=== PATIENT | female | born 1995 | race Caucasian/White ===

== ENCOUNTER → 2021-08-29 15:03 | Outpatient (CLI) | payer OTHER, SELFPAY ==
[2021-08-29 19:09] LABS: ALB/GLOB Ratio 0.9 RATIO (0.9-2.4); AST(SGOT) 18 U/L (15-37); Alanine Aminotransfer ALT/SGPT 37 U/L (13-56); Albumin, Serum 3.8 g/dL (3.2-5.0); Alkaline Phosphatase 92 U/L (45-117); Anion Gap 7 (5-15); BUN 11 mg/dL (7-18); Calcium,Total 8.8 mg/dL (8.5-10.1); Chloride 102 mmol/L (98-107); Creatinine, Serum 0.92 mg/dL (0.55-1.02); EST Glomerular Filtration Rate 80 mL/min (>60); Est Glom Filt Rate - Afr Amer 96 mL/min (>60); Follicle Stimulating Hormone 3.2 mIU/mL; Globulin 4.2 g/dL (2.2-4.2); Glucose 133 mg/dL (74-106); Luteinizing Hormone 2.6 mIU/mL; Sodium Level 138 mmol/L (136-145); T4 Free Direct 0.91 ng/dL (0.76-1.46); Thyroid Stim Hormone (TSH) 1.23 uIU/mL (0.358-3.74)
[2021-09-04 11:16] LABS: 17-Hydroxyprogesterone 23 ng/dL (.)
[2021-09-05 10:09] LABS: Testosterone, % Free 4.78 % (0.50-2.80); Testosterone, Free 0.76 ng/dL (0.10-0.85); Testosterone, Total 16 ng/dL (13-71)
== END ==
PROVIDERS: Referring Provider Internal Medicine Endocrinology, Diabetes & Metabolism; Visit Provider Internal Medicine Endocrinology, Diabetes & Metabolism
DX: E13.9 Other specified diabetes mellitus without complications (principal); E28.8 Other ovarian dysfunction
CPT/HCPCS: 36415; 80053; 82627; 82670; 83001; 83002; 83498; 84402; 84403; 84439; 84443; 82626